=== PATIENT | male | born 1990 | race Caucasian/White ===

== ENCOUNTER 2016-08-08 01:38 | Emergency (ER) | payer OTHER ==
[~2016-08-08] VITALS: Ht 177.8 cm; Wt 117.9 kg
[~2016-08-08 01:38] MED LIST: ATARAX,VISTARIL50 MG PO; CARBIDOPA/LEVOD1 TA1 PO; CLARITIN10 MG PO; IBU-8800 MG PO; KENALOG0.1% TP; LIDEX0.05% T; MEDROL DOSEPAK4 MG PO; MOTRIN800 MG PO; MYCOLOG CREAM 115 GM PO; ONDANSETRON HYDR4 M1 PO; PREDNISONE10 MG PO; VISTARIL50 MG PO
== END 2016-08-08 02:52 | disposition home or self-care (01) ==
LOC: ED 01:38
DX: T40.1X1A Poisoning by heroin, accidental (unintentional), initial encounter (principal); S00.31XA Abrasion of nose, initial encounter; R40.20 Unspecified coma; I10 Essential (primary) hypertension; F90.9 Attention-deficit hyperactivity disorder, unspecified type; W18.39XA Other fall on same level, initial encounter; Y93.89 Activity, other specified; Y92.89 Other specified places as the place of occurrence of the external cause; Y99.8 Other external cause status

== ENCOUNTER → 2017-11-24 | Outpatient (CLI) | payer OTHER ==
[2017-11-24 15:57] LABS: ALBUMIN 4.1 gm/dl (3.1-4.5); BILIRUBIN, DIRECT 0.2 mg/dL (0.0-0.2); TOTAL PROTEIN 7.5 gm/dL (6.4-8.2)
== END | disposition home or self-care (01) ==
LOC: LAB 15:13
PROVIDERS: Psychiatry & Neurology Psychiatry
DX: Z51.81 Encounter for therapeutic drug level monitoring (principal); Z79.899 Other long term (current) drug therapy

== ENCOUNTER 2018-03-29 15:03 | Inpatient (IN) | payer BC, OTHER ==
[~2018-03-29] VITALS: Ht 180.3 cm; Wt 121.1 kg
[2018-03-29 15:04] VITALS: BP 126/90
[2018-03-29 15:34] LABS: BASO # 0.1 10*3/uL (0.0-0.1); BASO % 0.5 % (0.0-1.0); EOS # 0.1 10*3/uL (0.0-0.4); HEMATOCRIT 48.3 % (42.0-52.0); HEMOGLOBIN 16.6 g/dl (14.0-18.0); MEAN CELL VOLUME 92.4 fl (80.0-94.0); MEAN CORPUSCULAR HGB 31.7 pg (27.0-31.0); MEAN CORPUSCULAR HGB CONC 34.4 g/dl (33.0-37.0); MEAN PLATELET VOLUME 10.3 fl (9.6-12.3); MONO # 0.6 10*3/uL (0.1-1.0); MONO % 5.3 % (3.0-9.0); NEUT # 7.3 10*3/uL (2.3-7.9); PLATELET COUNT AUTOMATED 221 10*3/uL (130-400); RED BLOOD COUNT 5.23 10*6/uL (4.50-5.90); RED CELL DISTRI WIDTH 12.2 % (0-14.5)
[2018-03-29 15:45] LABS: BILIRUBIN NEGATIVE (NEGATIVE); BLOOD NEGATIVE (NEGATIVE); CLARITY CLEAR (CLEAR); COLOR YELLOW (YELLOW); GLUCOSE NEGATIVE (NEGATIVE); KETONE 2+ (NEGATIVE); LEUKO ESTERASE NEGATIVE (NEGATIVE); NITRITE NEGATIVE (NEGATIVE); SPECIFIC GRAVITY 1.015 (1.005-1.030)
[2018-03-29 15:53] LABS: URINE AMPHETAMINES < 1000 (1000ng/ml); URINE BARBITURATES < 200 (200ng/ml); URINE BENZODIAZEPINES < 200 (200ng/ml); URINE CANNABINOIDS (THC) < 50 (50ng/ml); URINE COCAINE < 300 (300ng/ml); URINE METHADONE < 300 (300ng/ml); URINE OPIATES > 300 (300ng/ml); URINE PHENCYCLIDINE < 25 (25ng/ml)
[2018-03-29 15:57] LABS: ALBUMIN 4.1 gm/dl (3.1-4.5); ALKALINE PHOSPHATASE 67 U/L (45-117); BUN 8 mg/dl (7-24); CHLORIDE 105 mmol/L (98-107); CREATININE 0.94 mg/dL (0.70-1.30); POTASSIUM 4.1 mmol/L (3.5-5.1); SGOT/AST 45 IU/L (3-35); SGPT/ALT 73 U/L (12-78); SODIUM 142 mmol/L (136-145); TOTAL PROTEIN 8.2 gm/dL (6.4-8.2)
[2018-03-29 15:58] LABS: BACTERIA TRACE; EPITHELIAL CELLS 0+3; MUCOUS 3+
[2018-03-29 15:59] LABS: ETHYL ALCOHOL < 3.0 mg/dl (<3)
--- NOTE | 2018-03-29 16:00 | NUR ---
27 year old MALE admitted to room # 525 for stabilization. Reports an addiction to [facility] last used 24 HRS hours prior to admission. Compliant with admission procedure. See assessment forms for additional information about patient status.
--- NOTE | 2018-03-29 16:16 | NUR ---
PT MEDICATED WITH ROBAXIN FOR MUSCLE ACHES, VISTARIL FOR ANXIETY, AND BENTYL FOR ABD CRAMPS WILL MONITOR
--- NOTE | 2018-03-29 18:06 | NUR ---
PT RESTING IN BED. PRN MEDS APPEAR EFFECTIVE. WILL MONITOR
[2018-03-29 20:00] VITALS: BP 127/76
[2018-03-30] VITALS: BP 117/70
--- NOTE | 2018-03-30 04:40 | NUR ---
PATIENT SLEEPING. NO S/S OF DISTRESS NOTED. CALL LIGHT IN REACH
--- NOTE | 2018-03-30 07:15 | NUR ---
PT UP AMBULATING IN HALLWAYS NO DISTRESS NOTED. WILL MONITOR
[2018-03-30 08:00] VITALS: BP 130/79
--- NOTE | 2018-03-30 08:26 | NUR ---
PT MEDICATED WITH VISTARIL FOR ANXIETY AND ROBAXIN FOR MUSCLE ACHES WILL MONITOR
--- NOTE | 2018-03-30 10:28 | NUR ---
PT RESTING IN BED, EYES CLOSED. VISTARIL AND ROBAXIN APPEAR EFFECTIVE. WILL MONITOR
--- NOTE | 2018-03-30 11:50 | NUR ---
PATIENT MEETS [facility]. PATIENT WANTS INPATIENT TREATMENT AND THEN FOLLOW UP WITH THE VIV[facility]ROL SHOT. [place] STAFF SENT PATIENT'S ASSESSMENT TO [facility]. AFTER REHAB, PATIENT WILL FOLLOW UP WITH THE [facility]ING [facility] FOR THE VIVITROL SHOT. [place] STAFF WILL FOLLOW UP WITH PATIENT. ISRA CARVAJAL B.A. SAFETY COMPLIANCE SPECIALIST
[2018-03-30 12:00] VITALS: BP 126/84
--- NOTE | 2018-03-30 14:54 | NUR ---
PATIENT IS ACCEPTED TO GO TO [facility] IN [facility]. PATIENT NEEDS TO BE AT FACILITY ON TUESDAY, March AT 10:00AM. PATIENT REPORTED THAT HE WILL HAVE TRANSPORATION. ID STAFF WILL FOLLOW UP WITH PATIENT. ISRA CARVAJAL B.A. LOOM CHANGER
--- NOTE | 2018-03-30 15:48 | NUR ---
PT REQUESTED AND GIVEN ROBAXIN FOR C/O MUSCLE ACHES WILL MONITOR
[2018-03-30 16:00] VITALS: BP 118/70
--- NOTE | 2018-03-30 17:52 | NUR ---
GAURAV HELPED PER PT WILL MONITOR
--- NOTE | 2018-03-30 19:56 | NUR ---
AWAKE/ALERT FOR SHIFT ASSESSMENT. RESPIRATIONS EASY/REG ON RA. NO VOICED COMPLAINTS AT THIS TIME
[2018-03-30 20:00] VITALS: BP 141/91
[2018-03-31] VITALS: BP 123/75
--- NOTE | 2018-03-31 03:36 | NUR ---
PATIENT SLEEPING. NO S/S OF DISTRESS NOTED. RESPIRATIONS EASY/REG ON RA. CALL LIGHT IN REACH
--- NOTE | 2018-03-31 06:40 | NUR ---
SLEPT T/O SHIFT WITH NO VOICED COMPLAINTS. RESPIRATIONS EASY/REG ON RA. NO DISTRESS NOTED AT THIS TIME. CALL LIGHT IN REACH.
[2018-03-31 08:00] VITALS: BP 131/85
--- NOTE | 2018-03-31 09:02 | NUR ---
PT MEDICATED WITH ATIVAN FOR ANXIETY AND ROBAXIN FOR MUSCLE ACHES WILL MONITOR
--- NOTE | 2018-03-31 10:24 | NUR ---
PT RESTING IN BED. EYES CLOSED. ROBAXIN AND ATIVAN APPEAR EFFECTIVE. WILL MONITOR
[2018-03-31 12:00] VITALS: BP 118/74
--- NOTE | 2018-03-31 12:29 | NUR ---
PT REQUESTED AND GIVEN VISTARIL FOR ANXIETY WILL MONITOR
--- NOTE | 2018-03-31 14:13 | NUR ---
ARLENTARIL HELPED WILL MONITOR
[2018-03-31 16:00] VITALS: BP 139/77
--- NOTE | 2018-03-31 17:46 | NUR ---
PT UP AMBULATING IN HALLWAYS. NO DISTRESS NOTED. WILL MONITOR NO VOICED C/O.
[2018-03-31 20:00] VITALS: BP 140/88
--- NOTE | 2018-03-31 21:15 | NUR ---
PT MEDICATED WITH VISTARIL FOR ANXIETY AND ROBAXIN FOR MUSCLE ACHES
--- NOTE | 2018-03-31 21:55 | NUR ---
PT REQUESTED AND GIVEN TRAZADONE FOR SLEEP WILL MONITOR
--- NOTE | 2018-03-31 23:33 | NUR ---
ASSUME CARE OF PATIENT. AMBULATING IN ROOM. NO VOICED COMPLAINTS AT THIS TIME. CALL LIGHT IN REACH. WILL MONITOR.
[2018-04-01] VITALS: BP 120/71
[2018-04-01 06:06] LABS: BASO # 0.1 10*3/uL (0.0-0.1); BASO % 0.8 % (0.0-1.0); EOS # 0.6 10*3/uL (0.0-0.4); EOS % 6.4 % (1.0-4.0); HEMATOCRIT 44.5 % (42.0-52.0); LYMPH # 4.7 10*3/uL (1.3-4.4); LYMPH % 51.9 % (27.0-41.0); MEAN CELL VOLUME 92.1 fl (80.0-94.0); MEAN CORPUSCULAR HGB 31.1 pg (27.0-31.0); MEAN CORPUSCULAR HGB CONC 33.7 g/dl (33.0-37.0); MEAN PLATELET VOLUME 10.7 fl (9.6-12.3); MONO # 0.8 10*3/uL (0.1-1.0); MONO % 8.5 % (3.0-9.0); NEUT # 2.9 10*3/uL (2.3-7.9); NEUT % 32.1 % (47.0-73.0); PLATELET COUNT AUTOMATED 175 10*3/uL (130-400); RED BLOOD COUNT 4.83 10*6/uL (4.50-5.90); RED CELL DISTRI WIDTH 11.9 % (0-14.5)
[2018-04-01 06:29] LABS: CREATININE 0.89 mg/dL (0.70-1.30)
[2018-04-01 08:00] VITALS: BP 104/57
--- NOTE | 2018-04-01 09:00 | NUR ---
Patient resting. Responding to scheduled medications with fewer complaints of pain and anxiety.
[2018-04-01 12:00] VITALS: BP 110/62
[2018-04-01 16:00] VITALS: BP 106/76
[2018-04-01 20:00] VITALS: BP 139/82
[2018-04-02] VITALS: BP 132/84
[2018-04-02 08:00] VITALS: BP 128/79
[2018-04-02 12:00] VITALS: BP 128/84
--- NOTE | 2018-04-02 15:00 | NUR ---
PT RESTING COMFORTABLY, NO DISTRESS NOTED.
[2018-04-02 16:00] VITALS: BP 130/62
[2018-04-02 20:00] VITALS: BP 122/76
--- NOTE | 2018-04-02 20:00 | NUR ---
PT AMBULATORY IN HALLWAY WITH VISITOR. RESP-EASY AND REGULAR. NO C/O AT THIS TIME. CALL LIGHT IN REACH.
--- NOTE | 2018-04-02 22:00 | NUR ---
RESTING IN BED. NO C/O AT THIS TIME. DENIES NEED FOR ANYTHING AT THIS TIME. CALL LIGHT IN REACH.
--- NOTE | 2018-04-02 22:55 | NUR ---
PT REQUESTING SLEEPING PILL AND ANXIETY MEDS. MEDICATED WITH TRAZADONE PO AND VISTARIL PO PER PRN ORDER, SEE EMAR. CALL LIGHT IN REACH. SEE SHIFT ASSESSMENT.
[2018-04-03] VITALS: BP 106/71
--- NOTE | 2018-04-03 04:00 | NUR ---
PT SLEEPING IN BED. RESP-EASY AND REGULAR. CALL LIGHT IN REACH.
--- NOTE | 2018-04-03 06:00 | NUR ---
SLEEPING IN BED. RESP-EASY AND REGULAR. CALL LIGHT IN REACH.
[2018-04-03 08:00] VITALS: BP 138/88
--- NOTE | 2018-04-03 08:30 | NUR ---
Discharge instructions reviewed with patient/family. Patient receptive and verbalizes understanding. Follow-up care arranged. Written instructions given to patient/family. Patient picked up and being transported to [facility] by private vehicle. Patient ambulatory and denies pain or discomfort. JADON BAINS
== END 2018-04-03 08:30 | disposition home or self-care (01) | DRG 897 ==
LOC: ED 15:03 → 5E 15:36 → EDHOLD 15:36 → 5E 15:44
PROVIDERS: Nurse Practitioner Family; ADMIT Emergency Medicine
DX: F11.23 Opioid dependence with withdrawal (principal); E78.5 Hyperlipidemia, unspecified; M79.10 Myalgia, unspecified site; B18.2 Chronic viral hepatitis C; D72.825 Bandemia; F17.220 Nicotine dependence, chewing tobacco, uncomplicated; F90.9 Attention-deficit hyperactivity disorder, unspecified type

== ENCOUNTER 2019-12-10 15:08 | Inpatient (IN) | payer OTHER ==
[~2019-12-10] VITALS: Ht 180.3 cm; Wt 127.0 kg
[2019-12-10 16:34] LABS: BASO # 0.1 10*3/uL (0.0-0.1); BASO % 0.4 % (0.0-1.0); EOS # 0.2 10*3/uL (0.0-0.4); EOS % 1.1 % (1.0-4.0); HEMATOCRIT 47.3 % (42.0-52.0); LYMPH # 4.3 10*3/uL (1.3-4.4); LYMPH % 30.5 % (27.0-41.0); MEAN CELL VOLUME 91.3 fl (80.0-94.0); MEAN CORPUSCULAR HGB 30.5 pg (27.0-31.0); MEAN CORPUSCULAR HGB CONC 33.4 g/dl (33.0-37.0); MEAN PLATELET VOLUME 9.8 fl (9.6-12.3); MONO # 0.9 10*3/uL (0.1-1.0); MONO % 6.6 % (3.0-9.0); NEUT # 8.7 10*3/uL (2.3-7.9); NEUT % 61.1 % (47.0-73.0); PLATELET COUNT AUTOMATED 238 10*3/uL (130-400); RED BLOOD COUNT 5.18 10*6/uL (4.50-5.90); RED CELL DISTRI WIDTH 12.1 % (0-14.5); WHITE BLOOD COUNT 14.1 10*3/uL (4.8-10.8)
[2019-12-10 16:45] VITALS: BP 126/90
[2019-12-10 16:49] LABS: ALBUMIN 4.1 gm/dl (3.1-4.5); ALKALINE PHOSPHATASE 82 U/L (45-117); BUN 13 mg/dl (7-24); CHLORIDE 107 mmol/L (98-107); CREATININE 0.87 mg/dL (0.70-1.30); POTASSIUM 3.8 mmol/L (3.5-5.1); SGOT/AST 46 IU/L (3-35); SGPT/ALT 84 U/L (12-78); SODIUM 142 mmol/L (136-145)
[2019-12-10 16:52] LABS: ETHYL ALCOHOL < 3.0 mg/dl (<3)
[2019-12-10 17:05] LABS: BILIRUBIN Negative (Negative); BLOOD Negative (Negative); CLARITY Clear (Clear); COLOR Dark Yellow (Yellow); GLUCOSE Negative (Negative); KETONE Negative (Negative); LEUKO ESTERASE Trace (Negative); NITRITE Negative (Negative); PH 6.5 (4.5-8.0); SPECIFIC GRAVITY 1.025 (1.001-1.030)
[2019-12-10 17:13] LABS: URINE AMPHETAMINES < 1000 (1000ng/ml); URINE BARBITURATES < 200 (200ng/ml); URINE BENZODIAZEPINES < 200 (200ng/ml); URINE CANNABINOIDS (THC) < 50 (50ng/ml); URINE COCAINE < 300 (300ng/ml); URINE METHADONE < 300 (300ng/ml); URINE OPIATES < 300 (300ng/ml)
[2019-12-10 17:14] LABS: URINE PHENCYCLIDINE < 25 (25ng/ml)
[2019-12-10 17:17] LABS: BACTERIA 1+; EPITHELIAL CELLS 0-2; MUCOUS 2+
[2019-12-10 20:00] VITALS: BP 106/56
[2019-12-11] VITALS: BP 100/55
[2019-12-11 08:00] VITALS: BP 135/80
[2019-12-11 12:00] VITALS: BP 109/71
[2019-12-11 16:00] VITALS: BP 116/69
[2019-12-11 20:00] VITALS: BP 112/77
[2019-12-12] VITALS: BP 100/60
[2019-12-12 06:23] LABS: BASO % 0.4 % (0.0-1.0); EOS # 0.3 10*3/uL (0.0-0.4); EOS % 3.4 % (1.0-4.0); HEMATOCRIT 43.6 % (42.0-52.0); LYMPH # 4.6 10*3/uL (1.3-4.4); MEAN CELL VOLUME 91.8 fl (80.0-94.0); MEAN CORPUSCULAR HGB 30.3 pg (27.0-31.0); MEAN PLATELET VOLUME 9.9 fl (9.6-12.3); MONO # 0.8 10*3/uL (0.1-1.0); MONO % 8.3 % (3.0-9.0); NEUT # 3.3 10*3/uL (2.3-7.9); NEUT % 36.6 % (47.0-73.0); PLATELET COUNT AUTOMATED 202 10*3/uL (130-400); RED BLOOD COUNT 4.75 10*6/uL (4.50-5.90); RED CELL DISTRI WIDTH 12.1 % (0-14.5)
[2019-12-12 06:56] LABS: CREATININE 0.97 mg/dL (0.70-1.30)
[2019-12-12 08:00] VITALS: BP 132/78
[2019-12-12 12:00] VITALS: BP 117/64
[2019-12-12 16:00] VITALS: BP 110/59
[2019-12-12 20:00] VITALS: BP 110/61
[2019-12-13] VITALS: BP 114/68
[2019-12-13 08:00] VITALS: BP 102/59
== END 2019-12-13 10:50 | disposition home or self-care (01) | DRG 773 ==
LOC: 5E 15:08
PROVIDERS: Student in an Organized Health Care Education/Training Program; ADMIT Internal Medicine; ATTEND Internal Medicine
DX: F11.13 Opioid abuse with withdrawal (principal); F41.9 Anxiety disorder, unspecified; Z68.39 Body mass index [BMI] 39.0-39.9, adult; F90.9 Attention-deficit hyperactivity disorder, unspecified type; E66.9 Obesity, unspecified; B18.2 Chronic viral hepatitis C; E78.5 Hyperlipidemia, unspecified; D72.825 Bandemia; F17.220 Nicotine dependence, chewing tobacco, uncomplicated; Z71.6 Tobacco abuse counseling

== ENCOUNTER 2020-09-24 21:39 | Emergency (ER) | payer OTHER ==
[~2020-09-24] VITALS: Ht 180.3 cm; Wt 127.0 kg
[2020-09-24] MEDS ORDERED: IBUPROFEN600 MG PO (22:39)
== END 2020-09-24 23:14 | disposition home or self-care (01) ==
LOC: ED 21:39
DX: S39.011A Strain of muscle, fascia and tendon of abdomen, initial encounter (principal); F17.220 Nicotine dependence, chewing tobacco, uncomplicated; X50.0XXA Overexertion from strenuous movement or load, initial encounter; Y93.89 Activity, other specified; Y92.89 Other specified places as the place of occurrence of the external cause; Y99.8 Other external cause status

== ENCOUNTER 2023-08-22 17:38 | Emergency (ER) | payer OTHER ==
[~2023-08-22 17:38] MED LIST changes: +IBUPROFEN600 MG PO
[2023-08-22] MEDS ORDERED: Naloxone Hydrochloride 2 MG/2 ML SYR IV ONE (18:04)
[2023-08-22] MEDS ORDERED: SODIUM BICARBONATE 50 MEQ/50 ML SYR IV ONE (18:04)
[2023-08-22] MEDS ORDERED: EPINEPHrine Hydrochloride 1 MG/10 ML SYR IV ONE (18:04)
[2023-08-22 20:17] LABS: URINE AMPHETAMINES Negative (1000ng/ml); URINE BARBITURATES Negative (200ng/ml); URINE BENZODIAZEPINES Negative (200ng/ml); URINE CANNABINOIDS (THC) Negative (50ng/ml); URINE COCAINE Negative (300ng/ml); URINE METHADONE Negative (300ng/ml); URINE OPIATES Negative (300ng/ml); URINE PHENCYCLIDINE Negative (25ng/ml)
== END 2023-08-22 20:38 ==
LOC: ED 17:38
PROVIDERS: Emergency Medicine
DX: I46.9 Cardiac arrest, cause unspecified (principal); T65.891A Toxic effect of other specified substances, accidental (unintentional), initial encounter; F90.9 Attention-deficit hyperactivity disorder, unspecified type; F41.9 Anxiety disorder, unspecified; F17.220 Nicotine dependence, chewing tobacco, uncomplicated; F11.10 Opioid abuse, uncomplicated; Y92.89 Other specified places as the place of occurrence of the external cause